=== PATIENT | female | born 2000 | race Caucasian/White ===

== ENCOUNTER 2022-04-24 07:55 | Emergency (ER) | payer BC ==
[~2022-04-24] VITALS: Wt 83.0 kg
[2022-04-24 09:04] LABS: BILIRUBIN Negative (Negative); BLOOD 3+ (Negative); CLARITY Turbid (Clear); COLOR Dark Yellow (Yellow); GLUCOSE Negative (Negative); KETONE 1+ (Negative); LEUKO ESTERASE 2+ (Negative); NITRITE Positive (Negative); PH 5.5 (4.5-8.0)
[2022-04-24 09:25] LABS: BACTERIA 1+; MUCOUS 1+; RBC TNTC rbc/hpf (0-2); WBC TNTC wbc/hpf (0-5)
[2022-04-24] MEDS ORDERED: SEPTDS PO (11:35)
[2022-04-24] MEDS ORDERED: ONDANSETRON HYDR4 M1 PO (11:38)
== END 2022-04-24 11:43 | disposition home or self-care (01) ==
LOC: ED 07:55
PROVIDERS: Emergency Medicine
DX: N39.0 Urinary tract infection, site not specified (principal)

== ENCOUNTER 2022-06-13 02:42 | Emergency (ER) | payer BC ==
[~2022-06-13 02:42] MED LIST: ONDANSETRON HYDR4 M1 PO; SEPTDS PO
== END 2022-06-13 05:21 | disposition home or self-care (01) ==
LOC: ED 02:42
DX: S67.01XA Crushing injury of right thumb, initial encounter (principal); S60.011A Contusion of right thumb without damage to nail, initial encounter; F32.A Depression, unspecified; W22.8XXA Striking against or struck by other objects, initial encounter; Y93.89 Activity, other specified; Y92.89 Other specified places as the place of occurrence of the external cause; Y99.8 Other external cause status

== ENCOUNTER 2022-08-31 13:32 | Emergency (ER) | payer BC ==
[~2022-08-31] VITALS: Ht 167.6 cm; Wt 86.2 kg
[2022-08-31] MEDS ORDERED: MELOXICAM15 MG PO (14:03)
[2022-08-31] MEDS ORDERED: LEVOFLOXACIN750 M2 PO (14:03)
== END 2022-08-31 14:15 | disposition home or self-care (01) ==
LOC: ED 13:32
DX: H66.91 Otitis media, unspecified, right ear (principal); H60.91 Unspecified otitis externa, right ear; F32.A Depression, unspecified

== ENCOUNTER 2024-06-08 17:37 | Emergency (ER) | payer SELFPAY ==
[~2024-06-08 17:37] MED LIST changes: +LEVOFLOXACIN750 M2 PO; +MELOXICAM15 MG PO
== END 2024-06-08 18:37 | disposition left against medical advice (07) ==
LOC: ED 17:37
DX: S60.019A Contusion of unspecified thumb without damage to nail, initial encounter (principal); R51.9 Headache, unspecified; R11.0 Nausea; Z53.21 Procedure and treatment not carried out due to patient leaving prior to being seen by health care provider; X58.XXXA Exposure to other specified factors, initial encounter; Y93.89 Activity, other specified; Y92.89 Other specified places as the place of occurrence of the external cause; Y99.8 Other external cause status

== ENCOUNTER 2024-06-08 21:24 | Emergency (ER) | payer SELFPAY ==
[~2024-06-08] VITALS: Ht 167.6 cm; Wt 86.2 kg
[2024-06-08] MEDS ORDERED: Ondansetron Hydrochloride 4 MG/2 ML VIAL IV ONE (21:45)
[2024-06-08] MEDS ORDERED: SODIUM CHLORIDE 0.9% 1,000 ML IV ONE (21:45)
[2024-06-08] MEDS ORDERED: Ketorolac Tromethamine 30 MG/ML VIAL IV ONE (21:45)
[2024-06-08] MEDS ORDERED: diphenhydrAMINE hydrochloride 50 MG/ML VIAL IV ONE (21:45)
== END 2024-06-08 23:14 | disposition home or self-care (01) ==
LOC: ED 21:24
DX: R51.9 Headache, unspecified (principal); F32.A Depression, unspecified; Z79.899 Other long term (current) drug therapy

== ENCOUNTER 2024-09-15 18:30 | Emergency (ER) | payer OTHER ==
[~2024-09-15] VITALS: Wt 93.0 kg
[2024-09-15] MEDS ORDERED: Ketorolac Tromethamine 30 MG/ML VIAL IV ONE (19:30)
[2024-09-15] MEDS ORDERED: SODIUM CHLORIDE 0.9% 1,000 ML IV ONE (19:30)
[2024-09-15] MEDS ORDERED: Ondansetron Hydrochloride 4 MG/2 ML VIAL IV ONE (19:30)
[2024-09-15] MEDS ORDERED: CITALOPRAM20 MG PO (19:30)
[2024-09-15 19:43] LABS: BASO % 0.3 % (0.0-1.0); EOS % 0.1 % (1.0-4.0); HEMATOCRIT 41.1 % (37.0-47.0); MEAN CELL VOLUME 91.5 fl (81.0-99.0); MEAN CORPUSCULAR HGB 30.1 pg (27.0-31.0); MEAN CORPUSCULAR HGB CONC 32.8 g/dl (33.0-37.0); MONO # 0.9 10*3/uL (0.1-1.0); MONO % 5.7 % (3.0-9.0); NEUT # 13.3 10*3/uL (2.3-7.9); NEUT % 87.3 % (47.0-73.0); PLATELET COUNT AUTOMATED 209 10*3/uL (130-400); RED BLOOD COUNT 4.49 10*6/uL (4.10-5.10); RED CELL DISTRI WIDTH 12.7 % (0-14.5); WHITE BLOOD COUNT 15.2 10*3/uL (4.8-10.8)
[2024-09-15 20:07] LABS: BUN 6 mg/dl (9-23); CHLORIDE 102 mmol/L (98-107); POTASSIUM 3.9 mmol/L (3.4-5.1)
[2024-09-15] MEDS ORDERED: AMOX-CLAV 875-1 EACH PO (20:35)
[2024-09-15] MEDS ORDERED: OFLOXACIN 10 ML10 M2 OT (20:35)
[2024-09-15] MEDS ORDERED: Ondansetron4 MG PO (20:35)
[2024-09-15] MEDS ORDERED: OFLOXACIN 0.3% 5 ML BOTTLE OT ONE (20:40)
[2024-09-15] MEDS ORDERED: Amoxicillin/Clavulanate Pota 875 MG TAB PO ONE (20:40)
== END 2024-09-15 20:38 | disposition home or self-care (01) ==
LOC: ED 18:30
PROVIDERS: Nurse Practitioner Family
DX: H60.92 Unspecified otitis externa, left ear (principal); H66.92 Otitis media, unspecified, left ear; R11.2 Nausea with vomiting, unspecified; F32.A Depression, unspecified; Z79.899 Other long term (current) drug therapy

== ENCOUNTER 2025-02-19 04:04 | Emergency (ER) | payer OTHER ==
[~2025-02-19] VITALS: Ht 167.6 cm; Wt 113.4 kg
[~2025-02-19 04:04] MED LIST changes: +AMOX-CLAV 875-1 EACH PO; +CITALOPRAM20 MG PO; +OFLOXACIN 10 ML10 M2 OT; +Ondansetron4 MG PO
[2025-02-19 04:35] LABS: BILIRUBIN Negative (Negative); BLOOD Negative (Negative); CLARITY Clear (Clear); COLOR Yellow (Yellow); KETONE Negative (Negative); LEUKO ESTERASE Trace (Negative); NITRITE Negative (Negative); PH 6.5 (4.5-8.0); SPECIFIC GRAVITY 1.010 (1.001-1.030); UROBILINOGEN 1.0 E.U./dl (0.0-1.0)
[2025-02-19 04:44] LABS: BASO # 0.0 10*3/uL (0.0-0.1); BASO % 0.2 % (0.0-1.0); EOS # 0.1 10*3/uL (0.0-0.4); EOS % 0.7 % (1.0-4.0); MEAN CELL VOLUME 92.9 fl (81.0-99.0); MEAN CORPUSCULAR HGB 29.9 pg (27.0-31.0); MEAN PLATELET VOLUME 9.9 fl (9.6-12.3); MONO # 1.3 10*3/uL (0.1-1.0); MONO % 7.9 % (3.0-9.0); NEUT # 11.5 10*3/uL (2.3-7.9); NEUT % 71.5 % (47.0-73.0); NUCLEATED RED BLOOD CELL 0.0 % (0.0-0.0); NUCLEATED RED BLOOD CELL 0.0 10*3/uL (0.0-0.0); PLATELET COUNT AUTOMATED 268 10*3/uL (130-400); RED CELL DISTRI WIDTH 12.8 % (0-14.5)
[2025-02-19 04:53] LABS: BACTERIA 1+; EPITHELIAL CELLS 21-30
[2025-02-19 05:01] LABS: BUN 6 mg/dl (9-23); SGPT/ALT 19 U/L (5-49)
[2025-02-19] MEDS ORDERED: AMOX-CLAV 875-1 EACH PO (08:37)
== END 2025-02-19 08:46 | disposition home or self-care (01) ==
LOC: ED 04:04
PROVIDERS: Emergency Medicine
DX: O23.93 Unspecified genitourinary tract infection in pregnancy, third trimester (principal); B96.89 Other specified bacterial agents as the cause of diseases classified elsewhere; O26.893 Other specified pregnancy related conditions, third trimester; R10.11 Right upper quadrant pain; Z3A.28 28 weeks gestation of pregnancy; Z79.899 Other long term (current) drug therapy

== ENCOUNTER 2025-03-15 02:40 | Emergency (ER) | payer OTHER ==
[~2025-03-15] VITALS: Ht 165.1 cm; Wt 99.8 kg
[2025-03-15 03:16] LABS: MEAN CELL VOLUME 90.8 fl (81.0-99.0); MEAN CORPUSCULAR HGB 30.0 pg (27.0-31.0); MEAN PLATELET VOLUME 9.6 fl (9.6-12.3); NUCLEATED RED BLOOD CELL 0.0 % (0.0-0.0); NUCLEATED RED BLOOD CELL 0.0 10*3/uL (0.0-0.0); PLATELET COUNT AUTOMATED 338 10*3/uL (130-400); RED CELL DISTRI WIDTH 13.0 % (0-14.5)
[2025-03-15 03:18] LABS: MANUAL DIFF REFLEX YES
[2025-03-15] MEDS ORDERED: ACETAMINOPHEN 500 MG TAB PO ONE (03:35)
[2025-03-15 03:37] LABS: PLATELET SUFFICIENCY NORMAL (NORMAL)
== END 2025-03-15 04:03 | disposition left against medical advice (07) ==
LOC: ED 02:40
PROVIDERS: Internal Medicine
DX: O26.893 Other specified pregnancy related conditions, third trimester (principal); K82.8 Other specified diseases of gallbladder; D72.829 Elevated white blood cell count, unspecified; O99.013 Anemia complicating pregnancy, third trimester; O99.343 Other mental disorders complicating pregnancy, third trimester; Z53.29 Procedure and treatment not carried out because of patient's decision for other reasons; Z3A.31 31 weeks gestation of pregnancy